=== PATIENT | female | born 1970 | race Hispanic/Latino ===

== ENCOUNTER 2020-01-03 22:28 | Observation (INO) | payer BC ==
[~2020-01-03] VITALS: Ht 154.9 cm; Wt 88.5 kg
[2020-01-03 22:58] LABS: BASOPHILS # (AUTO) 0.1 (0.0-0.1); BASOPHILS % 0.4 % (0.0-1.0); EOSINOPHILS # (AUTO) 0.1 (0.0-0.4); EOSINOPHILS % 0.7 % (0.0-6.0); HEMATOCRIT 23.1 % (34.2-44.1); LYMPHOCYTES # (AUTO) 2.2 (1.0-3.2); MEAN CORPUSCULAR HEMOGLOBIN 19.9 pg (28-32); MEAN CORPUSCULAR HGB CONC 28.6 g/dL (31-35); MEAN CORPUSCULAR VOLUME 69.6 fL (81-99); MONOCYTES # (AUTO) 0.4 (0.2-0.8); MONOCYTES % 3.2 % (4.4-11.3); NEUTROPHILS # (AUTO) 10.6 (2.1-6.9); PLATELET COUNT 313 x10e3/uL (140-360); RED BLOOD COUNT 3.32 x10e6/uL (3.6-5.1); RED CELL DISTRIBUTION WIDTH 20.4 % (11.7-14.4)
[2020-01-03 23:01] LABS: HEMOGLOBIN 6.6 g/dL (12.0-16.0)
[2020-01-03 23:04] LABS: INR 1.04; PROTHROMBIN TIME 14.1 seconds (11.9-14.5)
[2020-01-03 23:05] LABS: PARTIAL THROMBOPLASTIN TIME 23.8 seconds (23.8-35.5)
[2020-01-03 23:14] LABS: ALANINE AMINOTRANSFERASE 13 IU/L (0-55); ALBUMIN 3.5 g/dL (3.5-5.0); ALBUMIN/GLOBULIN RATIO 1.2 (0.8-2.0); ALKALINE PHOSPHATASE 83 IU/L (40-150); ANION GAP 15.2 mmol/L (8-16); BLOOD UREA NITROGEN 8 mg/dL (7-26); BUN/CREATININE RATIO 11 (6-25); CALCIUM 8.9 mg/dL (8.4-10.2); CARBON DIOXIDE 20 mmol/L (22-29); CHLORIDE 105 mmol/L (98-107); CREATINE KINASE 19 IU/L (29-168); CREATININE, SERUM 0.72 mg/dL (0.57-1.11); EST GLOMERULAR FILTRATION RATE > 60 ML/MIN (60-); GLUCOSE 289 mg/dL (74-118); POTASSIUM 4.2 mmol/L (3.5-5.1); SODIUM 136 mmol/L (136-145)
[2020-01-03] MEDS ORDERED: SODIUM CHLORIDE 0.9% 250ML 250 ML IV ONE (23:15)
[2020-01-03 23:38] LABS: % IRON SATURATION 57 % (15-50); IRON 305 ug/dL (50-170); TOTAL IRON BINDING CAPACITY 539 ug/dL (261-478); TRANSFERRIN 385 mg/dL (180-382)
--- NOTE | 2020-01-03 23:46 | Diagnostic Imaging Report ---
EXAMINATION: CHEST SINGLE (PORTABLE) INDICATION: sob COMPARISON: None FINDINGS: TUBES and LINES: None. LUNGS: Normal lung volumes. Lungs are clear. No consolidations. PLEURA: No pleural effusion or pneumothorax. HEART AND MEDIASTINUM: The cardiomediastinal silhouette is unremarkable. BONES AND SOFT TISSUES: No acute osseous lesion. Soft tissues are unremarkable. UPPER ABDOMEN: No free air under the diaphragm. IMPRESSION: No acute thoracic radiographic abnormality. Signed by: Juan Quesada MD on 01/03/2020 11:42 PM
--- NOTE | 2020-01-03 23:49 | Emergency Department Note ---
History of Present Illnes History of Present Illness Chief Complaint: General Medicine Complaints History of Present Illness This is a 49 year old female shortness of breath onset this morning getting worse throughtout the day. Spouse reports that pt has a Hx of Anemia was admitted here in [facility] for blood transfusion. Pt very anxious, breathing shallow & rapid at this time. PT ALSO REPORTS H/O HEAVY MENSTRUAL CYCLES WELL. . Historian: Patient, Family Member Arrival Mode: [employer] Counterperson Required: No Onset (how long ago): hour(s) (15) Location: CHEST Quality: SOB Radiation: Reports non-radiation Onset quality: gradual Duration (how long): hour(s) (12) Timing of current episode: constant Progression: worsening Chronicity: recurrent (HAPPENS WHEN SHE GETS VERY ANEMIC) Context: Denies recent illness, Denies recent surgery Relieving factors: none Exacerbating factors: movement Associated symptoms: Reports shortness of breath Treatments prior to arrival: none Past Medical/Family History Physician Review I have reviewed the patient's past medical and family history. Any updates have been documented here. Past Medical History Recent Fever: No Clinical Suspicion of Infectio: No New/Unexplained Change in Ment: No Other Medical History: ANEMIA Social History Smoking Cessation: Never Smoker Alcohol Use: None Any Illegal Drug Use: No Family History Family history of heart diseas: No Review of Systems Review of Systems Constitutional: Reports no symptoms EENTM: Reports no symptoms Cardiovascular: Reports no symptoms Respiratory: Reports as per HPI Gastrointestinal: Reports no symptoms Genitourinary: Reports no symptoms Musculoskeletal: Reports no symptoms Integumentary: Reports no symptoms Neurological: Reports no symptoms Psychological: Reports no symptoms Endocrine: Reports no symptoms Hematological/Lymphatic: Reports no symptoms Physical Exam Related Data Triage Vital Signs Vital Signs Date Time Temp Pulse Resp B/P (MAP) Pulse Ox O2 Delivery O2 Flow Rate FiO2 01/03/20 23:00 98.2 111 20 97/51 100 Room Air Vital signs reviewed: Yes Physical Exam CONSTITUTIONAL Constitutional: Present well-developed, Present well-nourished HENT HENT: Present normocephalic, Present atraumatic, Present oropharynx clear/moist, Present nose normal HENT L/R: Present left ext ear normal, Present right ext ear normal EYES Eyes: Reports PERRL, Reports other (PALE CONJUNCTIVA) NECK Neck: Present ROM normal PULMONARY Pulmonary: Present effort normal, Present breath sounds normal CARDIOVASCULAR Cardiovascular: Present regular rhythm, Present heart sounds normal, Present capillary refill normal, Present tachycardia (108) GASTROINTESTINAL Abdominal: Present soft, Present nontender, Present bowel sounds normal GENITOURINARY Genitourinary: Present exam deferred SKIN Skin: Present warm, Present dry MUSCULOSKELETAL Musculoskeletal: Present ROM normal NEUROLOGICAL Neurological: Present alert, Present oriented x 3, Present no gross motor or sensory deficits PSYCHOLOGICAL Psychological: Present mood/affect normal, Present judgement normal Results Laboratory Result Diagram: 01/03/20223701/03/202237 Laboratory Laboratory Tests Test 01/03/20 22:38 White Blood Count 13.47 x10e3/uL (4.8-10.8) Red Blood Count 3.32 x10e6/uL (3.6-5.1) Hemoglobin 6.6 g/dL (12.0-16.0) Hematocrit 23.1 % (34.2-44.1) Mean Corpuscular Volume 69.6 fL (81-99) Mean Corpuscular Hemoglobin 19.9 pg (28-32) Mean Corpuscular Hemoglobin Concent 28.6 g/dL (31-35) Red Cell Distribution Width 20.4 % (11.7-14.4) Platelet Count 313 x10e3/uL (140-360) Neutrophils (%) (Auto) 79.0 % (38.7-80.0) Lymphocytes (%) (Auto) 16.0 % (18.0-39.1) Monocytes (%) (Auto) 3.2 % (4.4-11.3) Eosinophils (%) (Auto) 0.7 % (0.0-6.0) Basophils (%) (Auto) 0.4 % (0.0-1.0) Neutrophils # (Auto) 10.6 (2.1-6.9) Lymphocytes # (Auto) 2.2 (1.0-3.2) Monocytes # (Auto) 0.4 (0.2-0.8) Eosinophils # (Auto) 0.1 (0.0-0.4) Basophils # (Auto) 0.1 (0.0-0.1) Absolute Immature Granulocyte (auto 0.10 x10e3/uL (0-0.1) Prothrombin Time 14.1 seconds (11.9-14.5) Prothromb Time International Ratio 1.04 Activated Partial Thromboplast Time 23.8 seconds (23.8-35.5) Sodium Level 136 mmol/L (136-145) Potassium Level 4.2 mmol/L (3.5-5.1) Chloride Level 105 mmol/L (98-107) Carbon Dioxide Level 20 mmol/L (22-29) Anion Gap 15.2 mmol/L (8-16) Blood Urea Nitrogen 8 mg/dL (7-26) Creatinine 0.72 mg/dL (0.57-1.11) Estimat Glomerular Filtration Rate > 60 ML/MIN (60-) BUN/Creatinine Ratio 11 (6-25) Glucose Level 289 mg/dL (74-118) Calcium Level 8.9 mg/dL (8.4-10.2) Iron Level 305 ug/dL (50-170) Total Iron Binding Capacity 539 ug/dL (261-478) Percent Iron Saturation 57 % (15-50) Transferrin 385 mg/dL (180-382) Total Bilirubin 0.2 mg/dL (0.2-1.2) Aspartate Amino Transf (AST/SGOT) 13 IU/L (5-34) Alanine Aminotransferase (ALT/SGPT) 13 IU/L (0-55) Alkaline Phosphatase 83 IU/L (40-150) Creatine Kinase 19 IU/L (29-168) Creatine Kinase MB 0.80 ng/mL (0-5.0) Troponin I < 0.001 ng/mL (0-0.300) Total Protein 6.5 g/dL (6.5-8.1) Albumin 3.5 g/dL (3.5-5.0) Globulin 3.0 g/dL (2.3-3.5) Albumin/Globulin Ratio 1.2 (0.8-2.0) Human Chorionic Gonadotropin, Qual Negative (NEGATIVE) Lab results reviewed: Yes Imaging Imaging results reviewed: Yes Impressions Procedure: [id number] DX/CHEST SINGLE (PORTABLE) Exam Date: Exam Time: REPORT STATUS: Signed EXAMINATION: CHEST SINGLE (PORTABLE) INDICATION: sob COMPARISON: None FINDINGS: TUBES and LINES: None. LUNGS: Normal lung volumes. Lungs are clear. No consolidations. PLEURA: No pleural effusion or pneumothorax. HEART AND MEDIASTINUM: The cardiomediastinal silhouette is unremarkable. BONES AND SOFT TISSUES: No acute osseous lesion. Soft tissues are unremarkable. UPPER ABDOMEN: No free air under the diaphragm. IMPRESSION: No acute thoracic radiographic abnormality. Signed by: Becki Akhtar MD on 01/03/2020 11:42 PM Dictated By: BECKI AKHTAR MD 41 Transcribed By: HARVEY on 01/03/202341 COPY TO: KENNEY WHITAKER MD~ Procedures 12 Lead ECG Interpretation ECG Interpretation : ECG: ECG 1 Parts Counterperson: Interpreted by ED physician Date: Jan 03, 2020 Time: 22:33 Rhythm: sinus tachycardia Rate: tachycardia BPM: 112 QRS axis: normal ST segments normal: Yes T waves normal: Yes Other findings: no other findings Clinical Impression: normal ECG Assessment & Plan Medical Decision Making MDM PT WITH H/E ANEMIA WITH SOB CBC, CMP, EKG, ORDERED TO EVAL FOR ANEMIA, ARRHYTHMIA PT WITH HGB OF 6.6, 2 UNITS OF PRBC'S ORDERED I SPOKE WITH DR Yancy VASQUEZ, PLACE IN OBS Assessment & Plan Final Impression: (1) Symptomatic anemia (2) Severe anemia Depart Disposition: ADMITTED Last Vital Signs Date Time Temp Pulse Resp B/P (MAP) Pulse Ox O2 Delivery O2 Flow Rate FiO2 01/03/20 23:00 98.2 111 20 97/51 100 Room Air Medications in the ED Sodium Chloride 250 ml @ 0 mls/hr ONCE ONCE IV ; Start 01/03/20 at 23:15; Stop 01/03/20 at 23:16; Status DC KENNEY WHITAKER MD Jan 03, 2020 23:49
[2020-01-04] VITALS (7 sets, daily range): BP systolic 100–138; BP diastolic 49–94
[2020-01-04] MEDS ORDERED: SODIUM CHLORIDE FLUSH 10 ML SYR INJ PRN
[2020-01-04 00:01] LABS: FERRITIN < 1.00 ng/mL (4.63-204.00)
[2020-01-04] MEDS ORDERED: ONDANSETRON HCL INJ 2MG/ML 2ML 2 MG/ML VIAL IV STA (00:10)
[2020-01-04] MEDS ORDERED: ONDANSETRON HCL INJ 2MG/ML 2ML 2 MG/ML VIAL IV PRN ×2 (00:15)
[2020-01-04] MEDS ORDERED: ONDANSETRON HCL INJ 2MG/ML 2ML 2 MG/ML VIAL ONE (00:22)
--- NOTE | 2020-01-04 07:10 | NUR ---
RCD PT AT BED PT IS ALERT AND ORIENTED RESTING ON BED IV PATENT BED LOW AND LOCKED CALL LIGHT IN REACH
[2020-01-04 10:26] LABS: BASOPHILS # (AUTO) 0.1 (0.0-0.1); BASOPHILS % 0.5 % (0.0-1.0); EOSINOPHILS # (AUTO) 0.1 (0.0-0.4); EOSINOPHILS % 0.6 % (0.0-6.0); HEMATOCRIT 28.3 % (34.2-44.1); HEMOGLOBIN 8.7 g/dL (12.0-16.0); LYMPHOCYTES # (AUTO) 2.9 (1.0-3.2); LYMPHOCYTES % 25.6 % (18.0-39.1); MEAN CORPUSCULAR HEMOGLOBIN 23.2 pg (28-32); MEAN CORPUSCULAR HGB CONC 30.7 g/dL (31-35); MEAN CORPUSCULAR VOLUME 75.5 fL (81-99); MONOCYTES # (AUTO) 0.4 (0.2-0.8); MONOCYTES % 3.5 % (4.4-11.3); NEUTROPHILS # (AUTO) 7.8 (2.1-6.9); NEUTROPHILS % 68.8 % (38.7-80.0); PLATELET COUNT 251 x10e3/uL (140-360); RED BLOOD COUNT 3.75 x10e6/uL (3.6-5.1); RED CELL DISTRIBUTION WIDTH 22.2 % (11.7-14.4)
--- NOTE | 2020-01-04 12:05 | NUR ---
History&Physical Chief Complaint - shortness of breath, heavy menses History of Present Illness Ms Froilan Nazario is a 49 yo maltese speaking female with PMH significant for heavy menses and chronic iron deficiency anemia requiring frequent transfusions who presented with shortness of breath and fatigue, admitted for blood transfusion. She has had heavy menses for years and follows with an OBGYN who is performing workup in outpatient setting. She requires transfusion about once every 2 months. Presented to ED with shortness of breath and found to have hgb 6.6, 2 u PRBC transfusion started and admitted for further management. Home Medications See medication reconciliation. Review of Systems General: +fatigue; No fever, chills, HEENT: Denies visual changes, hearing loss, congestion, rhinorrhea, or bleeding Respiratory: + SOB, No cough, or hemoptysis Cardiovascular: No chest pain, palpitations, LAI, orthopnea, PND, leg edema, or claudication Gastrointestinal: No nausea, vomiting, diarrhea, constipation, or abdominal pain G/U: +heavy menses; Denies dysuria, hematuria, incontinence, or discharge Musculoskeletal: No myalgias or arthralgias Neurological: No syncope, seizures, headaches, changes in sensation, or weakness Hematology: No bruising, bleeding, or lymphadenopathy Endocrine: No heat or cold intolerance, hair loss, or weight changes Skin: No rashes, sores, itching, bruising Psychiatric: Denies depression or elevated mood, or anxiety Past Medical History Heavy Menses Obesity Iron deficiency anemia Past Surgical History Rhinoplasty 2009 Family History father who had COPD and was a smoker mother with unknown medical history Social History Does not smoke, does not drink, does not use drugs Allergies NKDA Physical Exam Vitals: Temp: 98.4P: 83BP: 111/49RR: 17SpO2: 100% on room air General Appearance: The patient is alert, oriented and in no acute distress. Appears euvolemic. Skin: Warm and hydrated without any rash. HEENT: Head is normocephalic, atraumatic. Nontender sinuses. Pupils are equal and reactive. The nares are patent. Oropharynx is moist and clear without lesions. Neck: Supple without lymphadenopathy. No JVD. Thyroid NV/CHALK TESTER Heart / Cardiovascular: Regular rate and rhythm. Normal S1 and S2 without S3/S4. No murmurs, rubs or gallops. Peripheral pulses symmetric +2. Respiratory / Chest: No crackles or wheezes are heard. Symmetric breath sounds. Preserved chest expansion. Abdomen: Soft, nontender, nondistended with good bowel sounds heard. No clinical organomegaly. Renal: There is no costovertebral angle tenderness. Extremities: Without cyanosis, clubbing or edema. Preserved ROM. Neurological: Gross nonfocal. Patient oriented x 3. Cranial nerves II - XII Grossly intact. DTRs +2. MS: 07/09 globally. Assessment/Plan #Heavy menses #Chronic blood loss anemia - receiving 2u PRBC, will recheck CBC and likely discharge if acceptable range - symptoms have already resolved with PRBC transfusion - iron studies with high iron, high TIBC, but low ferritin, indicating patient has continuing blood loss but frequent transfusions - takes iron sulfate at home, will prescribe Ferralet 90 daily #Hyperglycemia #New diagnosis of T2DM - no prior dx of DM; had glucose 290 on admission - A1c is 7.7, patient needs to follow up with PCP to begin treatment; advised to follow up with Dr Edmonds on discharge I have spent 70 minutes [id number] time with patient, reviewing clinical data, and formulating plan of treatment. Nigel Atkins MD Internal Medicine
--- NOTE | 2020-01-04 15:04 | NUR ---
PAGEEllis AND TALKED TO DR Iris VASQUEZ REGARDING DISCHARGE GOT THE DISCHARGE ORDER
[2020-01-04] MEDS ORDERED: [UNRECOGNIZED DRUG - OTHER] PO (15:11)
--- NOTE | 2020-01-04 15:28 | NUR ---
PATIENT WENT HOME IN SAFE CONDITION WITH HER
--- NOTE | 2020-01-07 21:13 | NUR ---
Discharge Summary Patient: Fariba Nazario Admission date: 01/04/2020 Discharge date: 01/04/2020 Attending physician: Nigel Atkins MD Consultation: None Admitting Diagnosis: Menorrhagia, chronic blood loss anemia, hyperglycemia, new diagnosis of type 2 diabetes mellitus Discharge Diagnosis: Menorrhagia, chronic blood loss anemia, hyperglycemia, new diagnosis of type 2 diabetes mellitus Procedures: None Hospital Course: Ms Froilan Nazario is a 49 yo Iranian speaking female with PMH significant for heavy menses and chronic iron deficiency anemia requiring frequent transfusions who presented with shortness of breath and fatigue, admitted for blood transfusion. She has had heavy menses for years and follows with an OBGYN who is performing workup in outpatient setting. She requires transfusion about once every 2 months. Presented to ED with shortness of breath and found to have hgb 6.6, 2 u PRBC transfusion started and admitted for further management. After 2 units transfused, her hemoglobin improved to 8.7. Her glucose was noted to be elevated to 289 on admission, A1c checked and was elevated to 7.7 and this is a new diagnosis of T2DM. Patient was advised on proper dieting and lifestyle changes for diabetic control. We both agreed not to start a medication at this time on discharge and I advised patient to follow up with her PCP within 1 week with this new T2DM diagnosis and to follow up with her OBGYN for menorrhagia. I also prescribed her Ferrelet for iron replacement and advised to take fiber to prevent constipation. Physical Exam Vitals: Temp: 98.0P: 85BP: 129/65RR: 17SpO2: 100% on room air General Appearance: The patient is alert, oriented and in no acute distress. Appears euvolemic. Skin: Warm and hydrated without any rash. HEENT: Head is normocephalic, atraumatic. Nontender sinuses. Pupils are equal and reactive. The nares are patent. Oropharynx is moist and clear without lesions. Neck: Supple without lymphadenopathy. No JVD. Thyroid NV/VOLUMETRIC WEIGHER Heart / Cardiovascular: Regular rate and rhythm. Normal S1 and S2 without S3/S4. No murmurs, rubs or gallops. Peripheral pulses symmetric +2. Respiratory / Chest: No crackles or wheezes are heard. Symmetric breath sounds. Preserved chest expansion. Abdomen: Soft, nontender, nondistended with good bowel sounds heard. No clinical organomegaly. Renal: There is no costovertebral angle tenderness. Extremities: Without cyanosis, clubbing or edema. Preserved ROM. Neurological: Gross nonfocal. Patient oriented x 3. Cranial nerves II - XII Grossly intact. DTRs +2. MS: 5/5 globally. Discharge medications: See medication reconciliation form Discharge plan: Condition on discharge: Good Activity: As tolerated Diet: Regular diet Follow-up: Follow up with your PCP within 1 week and your strategy manager within 2 weeks. Time spent on discharge: 45 minutes
== END 2020-01-04 15:28 | disposition home or self-care (01) ==
LOC: ER 23:07 → EDBD 23:07 → ERHOLD 23:51 → MED/SURG2 01-04 01:01
PROVIDERS: ADMIT Internal Medicine; ATTEND Internal Medicine
DX: D50.0 Iron deficiency anemia secondary to blood loss (chronic) (principal); E11.65 Type 2 diabetes mellitus with hyperglycemia
CPT/HCPCS: 36415 ×2; 36430; 71045; 80053; 82550; 82553; 82728; 83036; 83540; 84466; 84484; 84702; 85025 ×2; 85610; 85730; 86850 ×2; 86900 ×2; 86920 ×2; 93005; 99284; G0378 ×2; J2405; J7050; P9016; U0002